=== PATIENT | male | born 1995 ===

== ENCOUNTER 2019-02-11 00:24 | Emergency (ER) | payer OTHER ==
[2019-02-11 00:32] VITALS: BP 145/62; PULSE 87; TEMP 98.6; BMI 32.8
--- NOTE | 2019-02-11 00:38 | PDOC ---
History of Present Illness - General Chief Complaint: Lethargy Stated Complaint: DIZZY AND DROWSY AFTER SMOKING A JOINT Time Seen by Provider: 02/11/19 00:36 History Source: Patient Exam Limitations: No Limitations - History of Present Illness Initial Comments: 02/11/19 00:36 This is a 23-year-old male who comes in complaining that he feels dizzy and drowsy after smoking weed. Patient was a friend's house smoking made and the did not have enough money to make it home in a taxi so he called the ambulance telling him he was dizzy and wanted to come to the hospital. Here in the Hospital patient is without complaints other than he does say he still is feeling a little dizzy and drowsy. Patient had normal vitals and is otherwise normal exam. Patient denied doing any other drugs or drinking any alcohol. Allergies: as per nursing notes Past Medical History: none Social history: Lives with family. No smoking. No alcohol. No illicit drugs. Surgical history: None General: No fevers or chills, no weakness, no weight loss HEENT: No change in vision. No sore throat,. No ear pain CardioVascular: no chest discomfort. No shortness of breath Respiratory:No cough, or wheezing. Gastrointestinal: no nausea, vomiting, diarrhea or constipation, No rectal bleeding Genitourinary: No dysuria, hematuria, or frequency Musculoskeletal: No joint or muscle pain or swelling Neurologic: No headache, vertigo, dizziness or loss of consciousness Psychiatric: nor depression Skin: No rashes or easy bruising Endocrine: no increased thirst or abnormal weight change Allergic: no skin or latex allergy All other systems reviewed and normal Exam: General: Well-nourished well-developed individual, no acute distress HEENT: Throat: Normal, tonsils normal, no erythema or exudate Neck: Supple, no meningeal signs, no lymphadenopathy Eyes::Pupils equal reactive and round, extraocular motion intact Chest: Nontender to palpation Cardiac: S1-S2 normal, regular rate and rhythm, no murmurs rubs or gallops Respiratory: Lungs clear to auscultation bilateral Abdomen: Soft, nondistended, normal bowel sounds, there is no tenderness on palpation diffusely Extremities: Warm, dry, no cyanosis, clubbing, or edema Skin: No rashes Neuro: Alert and oriented x3, CN II - XII intact, nonfocal exam with normal strength, normal sensation, normal reflexes, normal gait, Psych: Normal mood and affect Assessment and plan: This is a 23-year-old male who feels drowsy after smoking marijuana. It is also 12:30 at night. Patient did not have enough money for a taxi home so called an ambulance. Patient otherwise had normal vitals and a normal exam and will be discharged home. Past History - Past Medical History Allergies/Adverse Reactions: Allergies Allergy/AdvReac Type Severity Reaction Status Date / Time Penicillins Allergy Verified 02/11/19 00:26 Home Medications: Ambulatory Orders Unobtainable 02/11/19 COPD: No - Suicide/Smoking/Psychosocial Hx Smoking History: Current every day smoker Have you smoked in the past 12 months: Yes Number of Cigarettes Smoked Daily: 10 Information on smoking cessation initiated: Yes Hx Alcohol Use: No Drug/Substance Use Hx: No *Physical Exam - Vital Signs Last Vital Signs Temp Pulse Resp BP Pulse Ox 98.6 F 87 16 145/62 96 02/11/19 00:28 02/11/19 00:02/11/19 00:28 02/11/19 00:02/11/19 00:28 *DC/Admit/Observation/Transfer Diagnosis at time of Disposition: Marijuana use - Discharge Dispostion Disposition: HOME Condition at time of disposition: Stable Decision to Admit order: No - Referrals - Patient Instructions Additional Instructions: Return to the emergency department immediately with ANY new, persistent or worsening symptoms. Continue any medications as previously prescribed by your physician. You should follow up with your primary doctor as soon as possible regarding today's emergency department visit. . Please make sure your doctor reviews the results of your emergency evaluation. Thank you for coming to the Emergency Department today for your care. It was a pleasure to see you today. Please note that your evaluation is INCOMPLETE until you follow-up with your doctor. - Post Discharge Activity
== END 2019-02-11 00:58 | disposition home or self-care (01) ==
LOC: FER 00:24
DX: F12.90 Cannabis use, unspecified, uncomplicated (principal); F17.210 Nicotine dependence, cigarettes, uncomplicated; Z88.0 Allergy status to penicillin
CPT/HCPCS: 99281-25